=== PATIENT | female | born 1960 | race Caucasian/White ===

== ENCOUNTER 2019-07-19 00:14 | Inpatient (IN) ==
[2019-07-19] MEDS ORDERED: ONDANSETRON 4 MG/2 ML VIAL IV PRN ×2 (01:10→13:44)
[2019-07-19] MEDS: LACTATED RINGERS 1,000 ML IV SCH ×4 (02:29→20:09)
[2019-07-19] MEDS: MORPHINE 4 MG/1 ML VIAL IV PRN ×3 (02:30→16:17)
[2019-07-19 05:36] LABS: Basophils % 0.5 % (0.0-0.8); Eosinophils % 0.5 % (0.00-10.9); Hematocrit 30.8 VOL% (35.7-47.0); Hemoglobin 9.9 GM/DL (12.0-16.0); Immature Granulocytes % 0.3 %; Immature Granulocytes Absolute 0.02 #; Lymphocytes # 1.1 10*3/uL (1.4-4.0); Lymphocytes % 13.9 % (21.3-54.2); Mean Corpuscular HGB Conc 32.1 GM/DL (32-36); Mean Corpuscular Volume 99.7 FL (87-102); Mean Platelet Volume 11.2 FL (9.6-12.0); Monocytes % 9.4 % (1.7-12.7); Neutrophils % 75.4 % (38.7-73.9); Platelet Count 182 T/CUMM (130-400); Red Blood Count 3.09 MC/CUMM (3.8-5.5); Red Cell Distribution Width 12.6 % (9.3-17.3)
[2019-07-19 06:12] LABS: Albumin 3.3 G/DL (3.4-5.0); Bilirubin,Total 0.6 MG/DL (0.2-1.0); Calcium 8.4 MG/DL (8.5-10.1); Osmolality,Calculated 272.8 MOS/KG (273-304)
[2019-07-19] MEDS ORDERED: ceFAZolin 1,000 MG in SYRINGE 1 EACH IV ONE (06:20)
[2019-07-19] MEDS ORDERED: predniSONE 5 MG TABLET PO PRN (06:23)
[2019-07-19] MEDS ORDERED: AMITRIPTYLINE 25 MG TABLET PO PRN (06:23)
[2019-07-19] MEDS ORDERED: GENTAMICIN INJ 320 MG in SODIUM CHLORIDE 0.9% 100 ML IV ONE (07:00)
[2019-07-19] MEDS ORDERED: ROPIVACAINE 0.5% 30 ML VIAL ONE (10:24)
[2019-07-19] MEDS ORDERED: DEXAMETHASONE 4 MG/1 ML VIAL ONE (10:24)
[2019-07-19] MEDS ORDERED: EPINEPHrine 1 MG/ML VIAL ONE (10:24)
[2019-07-19] MEDS ORDERED: GENTAMICIN 80 MG/2 ML VIAL ONE (10:36)
[2019-07-19] MEDS ORDERED: MAGNESIUM HYDROXIDE SUSP 30 ML UDCUP PO PRN (13:22)
[2019-07-19] MEDS ORDERED: MORPHINE 4 MG/1 ML VIAL IV PRN (13:22)
[2019-07-19] MEDS ORDERED: KETOROLAC 30 MG/1 ML VIAL IV PRN (13:22)
[2019-07-19] MEDS ORDERED: diphenhydrAMINE CAP 25 MG CAPSULE PO PRN (13:22)
[2019-07-19] MEDS ORDERED: GLYCOPYRROLATE 0.4 MG/2 ML VIAL ONE (13:40)
[2019-07-19] MEDS ORDERED: SEVOFLURANE 1 UNIT/15 MINUTE INH ONE (13:40)
[2019-07-19] MEDS ORDERED: PHENYLEPHRINE 1 MG/10 ML SYRINGE IV ONE (13:40)
[2019-07-19] MEDS ORDERED: ONDANSETRON 4 MG/2 ML VIAL ONE (13:40)
[2019-07-19] MEDS ORDERED: PROPOFOL 200 MG/20 ML VIAL IV ONE (13:40)
[2019-07-19] MEDS ORDERED: fentaNYL 100 MCG/2 ML VIAL ONE ×2 (13:40)
[2019-07-19] MEDS ORDERED: NEOSTIGMINE 10 MG/10 ML VIAL ONE (13:41)
[2019-07-19] MEDS ORDERED: ROCURONIUM 100 MG/10 ML VIAL IV ONE (13:41)
[2019-07-19] MEDS ORDERED: MEPERIDINE 25 MG/1 ML VIAL IV PRN (13:44)
[2019-07-19] MEDS: HYDROmorphone 2 MG/1 ML VIAL IV PRN ×4 (13:50→14:15)
[2019-07-19] MEDS ORDERED: MIDAZOLAM 2 MG/2 ML VIAL ONE (17:41)
[2019-07-19] MEDS: ceFAZolin 1,000 MG in SYRINGE 1 EACH IV SCH (19:20)
[2019-07-19] MEDS: DOCUSATE SODIUM 100 MG CAPSULE PO SCH (21:56)
[2019-07-19] MEDS: ZALEPLON 5 MG CAPSULE PO PRN (21:56)
[2019-07-20] MEDS: ceFAZolin 1,000 MG in SYRINGE 1 EACH IV SCH (02:20)
[2019-07-20] MEDS: LACTATED RINGERS 1,000 ML IV SCH (03:11)
[2019-07-20 05:34] LABS: Basophils % 0.5 % (0.0-0.8); Eosinophils % 0.3 % (0.00-10.9); Hematocrit 28.8 VOL% (35.7-47.0); Hemoglobin 9.1 GM/DL (12.0-16.0); Immature Granulocytes % 0.3 %; Immature Granulocytes Absolute 0.02 #; Lymphocytes # 0.8 10*3/uL (1.4-4.0); Lymphocytes % 12.6 % (21.3-54.2); Mean Corpuscular HGB Conc 31.6 GM/DL (32-36); Mean Corpuscular Volume 100.3 FL (87-102); Mean Platelet Volume 10.8 FL (9.6-12.0); Monocytes % 12.9 % (1.7-12.7); Neutrophils % 73.4 % (38.7-73.9); Platelet Count 140 T/CUMM (130-400); Red Blood Count 2.87 MC/CUMM (3.8-5.5); Red Cell Distribution Width 12.6 % (9.3-17.3); White Blood Count 6.4 T/CUMM (4-12)
[2019-07-20 05:56] LABS: Osmolality,Calculated 271.7 MOS/KG (273-304)
[2019-07-20] MEDS: DOCUSATE SODIUM 100 MG CAPSULE PO SCH ×2 (09:38→21:16)
[2019-07-20] MEDS: HYDROXYCHLOROQUINE 200 MG TABLET PO SCH ×2 (09:38→21:16)
[2019-07-20] MEDS: MORPHINE 4 MG/1 ML VIAL IV PRN (12:41)
[2019-07-20] MEDS: ZALEPLON 5 MG CAPSULE PO PRN (21:58)
[2019-07-21 04:53] LABS: Basophils % 0.5 % (0.0-0.8); Eosinophils # 0.1 10*3/uL (0.0-0.87); Eosinophils % 1.2 % (0.00-10.9); Hematocrit 31.2 VOL% (35.7-47.0); Hemoglobin 9.8 GM/DL (12.0-16.0); Immature Granulocytes % 0.3 %; Immature Granulocytes Absolute 0.02 #; Lymphocytes # 0.9 10*3/uL (1.4-4.0); Lymphocytes % 11.8 % (21.3-54.2); Mean Corpuscular HGB Conc 31.4 GM/DL (32-36); Mean Platelet Volume 10.6 FL (9.6-12.0); Monocytes % 11.6 % (1.7-12.7); Neutrophils % 74.6 % (38.7-73.9); Platelet Count 158 T/CUMM (130-400); Red Blood Count 3.06 MC/CUMM (3.8-5.5); Red Cell Distribution Width 12.6 % (9.3-17.3); White Blood Count 7.7 T/CUMM (4-12)
[2019-07-21] MEDS ORDERED: ASPIRIN 325 MG TABLET PO SCH (09:00)
[2019-07-21] MEDS: DOCUSATE SODIUM 100 MG CAPSULE PO SCH (09:17)
[2019-07-21] MEDS: HYDROXYCHLOROQUINE 200 MG TABLET PO SCH (09:17)
[2019-07-21 10:45] VITALS: BP 128/59
== END 2019-07-21 12:51 | disposition home or self-care (01) | DRG 494 ==
LOC: N.ED 00:14 → N.EDINP 00:14 → N.3E 02:49
PROVIDERS: ADMIT Orthopaedic Surgery; ATTEND Orthopaedic Surgery